=== PATIENT | female | born 2000 | race Caucasian/White ===

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

== ENCOUNTER 2021-03-10 09:17 | Emergency (ER) | payer OTHER ==
[2021-03-10 09:48] VITALS: BP 113/52; PULSE 74; TEMP 98; BMI 27.4
[2021-03-10 11:19] LABS: EPI CELLS 10 /uL (0-25.1); HCG,QUALITATIVE URINE Negative; HYALINE CASTS 7 /uL (0-3.1); PH,URINE 5.5 (5.0-8.0); URINE APPEARANCE CLEAR; URINE BACTERIA 348 /uL (0-1359); URINE BILIRUBIN NEGATIVE (NEGATIVE); URINE COLOR DK YELLOW; URINE GLUCOSE (UA) NEGATIVE (NEGATIVE); URINE KETONE TRACE (NEGATIVE); URINE LEUK ESTERASE 2+ (NEGATIVE); URINE NITRITE NEGATIVE (NEGATIVE); URINE PROTEIN NEGATIVE (NEGATIVE); URINE RBC 11 /uL (0-23.9); URINE WBC 197 /uL (0-25.8)
== END 2021-03-10 13:35 | disposition home or self-care (01) ==
LOC: JER 09:17
DX: N64.4 Mastodynia (principal); N30.00 Acute cystitis without hematuria
CPT/HCPCS: 36415; 76642-TC-LT; 81003; 84703; 87086; 87186; 87491; 87591; 99284-25

== ENCOUNTER 2021-03-19 10:17 | Emergency (ER) | payer OTHER ==
[2021-03-19 10:24] VITALS: BP 105/48; PULSE 65; TEMP 98.4; BMI 29.2
[2021-03-19] MEDS ORDERED: IBUPROFEN 400 MG TABLET (FP) PO ONE ×2 (11:21→11:41)
== END 2021-03-19 12:01 | disposition home or self-care (01) ==
LOC: JERFT 10:17
PROC: 0H9XXZZ Drainage of Left Nipple, External Approach (ICD-10-PCS; principal; 2021-03-19)
DX: N61.1 Abscess of the breast and nipple (principal)
CPT/HCPCS: 99283-25

== ENCOUNTER 2021-03-21 13:23 | Emergency (ER) | payer OTHER ==
[2021-03-21 13:39] VITALS: BP 120/70; PULSE 71; TEMP 97.4; BMI 34.2
== END 2021-03-21 14:32 | disposition home or self-care (01) ==
LOC: JERFT 13:23
DX: Z48.00 Encounter for change or removal of nonsurgical wound dressing (principal)
CPT/HCPCS: 99281-25

== ENCOUNTER 2021-04-02 12:51 | Emergency (ER) | payer OTHER ==
[2021-04-02 12:56] VITALS: BP 104/68; PULSE 74; TEMP 98.2; BMI 26.2
[2021-04-02 14:21] LABS: BASO % 0.4 % (0-2.0); EOS % 1.2 % (0-4.5); HEMATOCRIT 33.9 % (32.4-45.2); HEMOGLOBIN 11.8 GM/dL (10.7-15.3); MCH 31.4 pg (25.7-33.7); MCHC 34.7 g/dl (32.0-36.0); MEAN CELL VOLUME 90.5 fl (80-96); MEAN PLT VOLUME 8.6 fl (7.5-11.1); MONO % 8.9 % (3.8-10.2); NEUT % 63.5 % (42.8-82.8); PLATELET COUNT 237 10^3/uL (134-434); RBC 3.74 M/mm3 (3.60-5.2); RDW 12.3 % (11.6-15.6); WHITE BLOOD COUNT 4.9 K/mm3 (4.0-10.0)
[2021-04-02 14:32] LABS: EPI CELLS 27 /uL (0-25.1); HYALINE CASTS 1 /uL (0-3.1); PH,URINE 5.5 (5.0-8.0); URINE APPEARANCE CLEAR; URINE BACTERIA 255 /uL (0-1359); URINE BILIRUBIN NEGATIVE (NEGATIVE); URINE COLOR YELLOW; URINE GLUCOSE (UA) NEGATIVE (NEGATIVE); URINE KETONE NEGATIVE (NEGATIVE); URINE LEUK ESTERASE 2+ (NEGATIVE); URINE NITRITE NEGATIVE (NEGATIVE); URINE PROTEIN NEGATIVE (NEGATIVE); URINE RBC 15 /uL (0-23.9); URINE WBC 38 /uL (0-25.8)
[2021-04-02] MEDS ORDERED: ACETAMINOPHEN 1000 MG/100 ML VIAL (NON FORMULARY) IVPB ONE (14:45)
[2021-04-02 14:46] LABS: ALBUMIN 3.9 g/dl (3.4-5.0); BLOOD UREA NITROGEN 7.9 mg/dL (7-18); CALCIUM 9.1 mg/dL (8.5-10.1)
[2021-04-02 14:49] LABS: CREATININE 0.5 mg/dL (0.55-1.3)
[2021-04-02 14:50] LABS: BILIRUBIN,TOTAL 2.1 mg/dL (0.2-1)
[2021-04-02] MEDS ORDERED: ACETAMINOPHEN INJECTION 100 ML IVPB ONE (14:50)
[2021-04-02 14:51] LABS: TOT PROT 7.2 g/dl (6.4-8.2)
== END 2021-04-02 17:15 | disposition home or self-care (01) ==
LOC: JER 12:51
PROC: 3E0333Z Introduction of Anti-inflammatory into Peripheral Vein, Percutaneous Approach (ICD-10-PCS; principal; 2021-04-02)
DX: O26.891 Other specified pregnancy related conditions, first trimester (principal); R20.8 Other disturbances of skin sensation; R10.9 Unspecified abdominal pain; Z3A.01 Less than 8 weeks gestation of pregnancy
CPT/HCPCS: 36415; 76801-TC; 80053; 81003; 83690; 84702; 85025; 86850; 86900; 86901; 87086; 99284-25; J0131

== ENCOUNTER 2021-06-27 03:17 | Emergency (ER) | payer OTHER ==
[2021-06-27 04:08] VITALS: BMI 26.2
[2021-06-27] MEDS ORDERED: SODIUM CHLORIDE 0.9% 500 ML INFUS.BAG IV ONE ×3 (04:10→11:05)
[2021-06-27 04:35] LABS: BASO % 0.5 % (0-2.0); EOS % 1.5 % (0-4.5); HEMATOCRIT 28.9 % (32.4-45.2); HEMOGLOBIN 9.9 GM/dL (10.7-15.3); LYMPH % 26.4 % (8-40); MCH 31.6 pg (25.7-33.7); MCHC 34.4 g/dl (32.0-36.0); MEAN CELL VOLUME 91.8 fl (80-96); MEAN PLT VOLUME 8.7 fl (7.5-11.1); MONO % 6.2 % (3.8-10.2); NEUT % 65.4 % (42.8-82.8); PLATELET COUNT 205 10^3/uL (134-434); RBC 3.15 M/mm3 (3.60-5.2); RDW 13.8 % (11.6-15.6); WHITE BLOOD COUNT 5.4 K/mm3 (4.0-10.0)
[2021-06-27 04:43] LABS: PROTHROMBIN TIME (PATIENT) 11.7 SEC (9.7-13.0)
[2021-06-27 04:45] LABS: ACTIVATED PTT 26.3 SECONDS (25.2-36.5)
[2021-06-27 04:55] LABS: ALBUMIN 2.9 g/dl (3.4-5.0); CALCIUM 8.5 mg/dL (8.5-10.1)
[2021-06-27 04:57] LABS: CREATININE 0.5 mg/dL (0.55-1.3)
[2021-06-27 04:59] LABS: BILIRUBIN,TOTAL 0.6 mg/dL (0.2-1); TOT PROT 6.2 g/dl (6.4-8.2)
[2021-06-27 05:51] LABS: PH,URINE 5.5 (5.0-8.0); URINE APPEARANCE CLEAR; URINE BILIRUBIN NEGATIVE (NEGATIVE); URINE COLOR YELLOW; URINE GLUCOSE (UA) NEGATIVE (NEGATIVE); URINE KETONE NEGATIVE (NEGATIVE); URINE LEUK ESTERASE NEGATIVE (NEGATIVE); URINE NITRITE NEGATIVE (NEGATIVE); URINE PROTEIN NEGATIVE (NEGATIVE)
[2021-06-27 08:21] VITALS: TEMP 97.7
[2021-06-27 09:34] LABS: BASO % 0.5 % (0-2.0); EOS % 1.2 % (0-4.5); HEMATOCRIT 25.3 % (32.4-45.2); HEMOGLOBIN 8.7 GM/dL (10.7-15.3); LYMPH % 24.5 % (8-40); MCH 31.9 pg (25.7-33.7); MCHC 34.5 g/dl (32.0-36.0); MEAN CELL VOLUME 92.4 fl (80-96); MEAN PLT VOLUME 9.3 fl (7.5-11.1); NEUT % 67.8 % (42.8-82.8); PLATELET COUNT 171 10^3/uL (134-434); RBC 2.74 M/mm3 (3.60-5.2); RDW 13.5 % (11.6-15.6); WHITE BLOOD COUNT 5.8 K/mm3 (4.0-10.0)
[2021-06-27 11:17] VITALS: BP 95/54; PULSE 81
== END 2021-06-27 13:17 | disposition home or self-care (01) ==
LOC: JER 03:17
DX: O20.9 Hemorrhage in early pregnancy, unspecified (principal); Z3A.16 16 weeks gestation of pregnancy
CPT/HCPCS: 36415; 76815-TC; 80053; 81003; 84702; 85025; 85610; 85730; 86850; 86900; 86901; 99284-25; C9803; U0003; U0005

== ENCOUNTER 2021-09-12 12:13 | Emergency (ER) | payer OTHER ==
[2021-09-12 12:34] VITALS: BP 117/50; PULSE 81; TEMP 97.8; BMI 31.3
[2021-09-12] MEDS ORDERED: LORATADINE 10 MG TABLET PO ONE (13:01)
[2021-09-12] MEDS ORDERED: LORATADINE 10 MG TABLET ONE (13:03)
[2021-09-12 14:07] LABS: ALBUMIN 2.7 g/dl (3.4-5.0)
[2021-09-12 14:10] LABS: CREATININE 0.4 mg/dL (0.55-1.3)
[2021-09-12 14:11] LABS: TOT PROT 6.1 g/dl (6.4-8.2)
[2021-09-12 14:12] LABS: BILIRUBIN,TOTAL 1.6 mg/dL (0.2-1)
[2021-09-12 14:22] LABS: BASO % 0.4 % (0-2.0); EOS % 0.8 % (0-4.5); HEMATOCRIT 30.1 % (32.4-45.2); HEMOGLOBIN 10.8 GM/dL (10.7-15.3); LYMPH % 19.2 % (8-40); MCH 33.8 pg (25.7-33.7); MONO % 7.9 % (3.8-10.2); NEUT % 71.7 % (42.8-82.8); PLATELET COUNT 223 10^3/uL (134-434); RDW 13.1 % (11.6-15.6); WHITE BLOOD COUNT 6.5 K/mm3 (4.0-10.0)
== END 2021-09-12 15:52 | disposition home or self-care (01) ==
LOC: JERFT 12:13
DX: O26.613 Liver and biliary tract disorders in pregnancy, third trimester (principal); Z3A.28 28 weeks gestation of pregnancy
CPT/HCPCS: 36415; 80053; 82542; 85025; 99283-25

== ENCOUNTER 2021-10-26 08:39 | Inpatient (IN) | payer OTHER ==
[~2021-10-26 08:39] MED LIST: DEXTROSE 5%-LACTATED RINGERS 1,000 ML IV SCH
[2021-10-26] MEDS ORDERED: BETAMET ACET/BETAMET NA PH 30 MG/5 ML VIAL ONE (08:57)
[2021-10-26] MEDS ORDERED: TERBUTALINE SULFATE 1 MG/1 ML VIAL SQ ONE ×2 (08:57→09:03)
[2021-10-26] MEDS ORDERED: AMPICILLIN SODIUM 2 GM VIAL ONE (08:57)
[2021-10-26] MEDS ORDERED: DEXTROSE 5%-LACTATED RINGERS 1,000 ML IV SCH (09:00)
[2021-10-26] MEDS ORDERED: BETAMET ACET/BETAMET NA PH 30 MG/5 ML VIAL IM ONE (09:04)
[2021-10-26 09:34] LABS: BASO % 0.4 % (0-2.0); EOS % 0.3 % (0-4.5); HEMATOCRIT 33.1 % (32.4-45.2); HEMOGLOBIN 11.8 GM/dL (10.7-15.3); LYMPH % 19.7 % (8-40); MCH 33.4 pg (25.7-33.7); MCHC 35.6 g/dl (32.0-36.0); MEAN CELL VOLUME 93.8 fl (80-96); MEAN PLT VOLUME 9.1 fl (7.5-11.1); MONO % 4.1 % (3.8-10.2); NEUT % 75.5 % (42.8-82.8); PLATELET COUNT 308 10^3/uL (134-434); RBC 3.53 M/mm3 (3.60-5.2); RDW 12.7 % (11.6-15.6); WHITE BLOOD COUNT 8.1 K/mm3 (4.0-10.0)
[2021-10-26 09:53] LABS: INR 0.89 (0.83-1.09); PROTHROMBIN TIME (PATIENT) 10.2 SEC (9.7-13.0)
[2021-10-26 09:54] LABS: CALCIUM 8.9 mg/dL (8.5-10.1)
[2021-10-26 09:55] VITALS: BMI 30.2
[2021-10-26 09:55] LABS: BLOOD UREA NITROGEN 5.5 mg/dL (7-18)
[2021-10-26 09:56] LABS: ACTIVATED PTT 30.2 SECONDS (25.2-36.5)
[2021-10-26] MEDS ORDERED: AMPICILLIN - 2 GM in SODIUM CHLORIDE 100 ML IVPB ONE (09:57)
[2021-10-26 09:58] LABS: CREATININE 0.5 mg/dL (0.55-1.3)
[2021-10-26] MEDS ORDERED: FENTANYL/BUPIVACAINE/NS/PF - PCEA - 50 ML DISP.SYRIN EP ONE (10:00)
[2021-10-26] MEDS ORDERED: ELECTROLYTE-148 SOLN 1,000 ML IV SCH (10:00)
[2021-10-26] MEDS ORDERED: BUPIVACAINE HCL/PF 0.25% (2.5MG/ML) 10 ML VIAL ONE (10:14)
[2021-10-26] MEDS ORDERED: NALOXONE HCL 0.4 MG/ML VIAL IVPUSH PRN (10:16)
[2021-10-26] MEDS ORDERED: FENTANYL/BUPIVACAINE/NS/PF - PCEA - 50 ML DISP.SYRIN EP SCH (10:30)
[2021-10-26 11:23] LABS: PH,URINE 7.5 (5.0-8.0); URINE APPEARANCE CLEAR; URINE BILIRUBIN 1+ (NEGATIVE); URINE COLOR DK YELLOW; URINE GLUCOSE (UA) NEGATIVE (NEGATIVE); URINE KETONE TRACE (NEGATIVE); URINE LEUK ESTERASE NEGATIVE (NEGATIVE); URINE NITRITE NEGATIVE (NEGATIVE); URINE PROTEIN NEGATIVE (NEGATIVE)
[2021-10-26] MEDS ORDERED: AMPICILLIN - 1 GM in SODIUM CHLORIDE 100 ML IVPB SCH (13:05)
[2021-10-26] MEDS ORDERED: AMPICILLIN SODIUM 1 GM VIAL ONE (13:37)
[2021-10-26] MEDS ORDERED: OXYTOCIN 20 UNITS in 0.9% NS 20 UNIT/1,000 ML INFUS.BAG IV ONE (14:02)
[2021-10-26] MEDS ORDERED: BENZOCAINE 28 GM HEMORRHOIDAL OINTMENT TP PRN (15:05)
[2021-10-26] MEDS ORDERED: METHYLERGONOVINE MALEATE 0.2 MG/1 ML AMP IM PRN (15:05)
[2021-10-26] MEDS ORDERED: WITCH HAZEL 50% (TUCKS) 40 PAD/JAR PAD TP PRN (15:05)
[2021-10-26] MEDS ORDERED: ACETAMINOPHEN 325 MG TABLET (FP) PO PRN (15:05)
[2021-10-26] MEDS ORDERED: BENZOCAINE 20% 57 GM BOTTLE TP PRN (15:05)
[2021-10-26] MEDS ORDERED: BISACODYL 10 MG SUPP.RECT RC PRN (15:05)
[2021-10-26] MEDS ORDERED: oxyCODONE HCL 5 MG TABLET PO PRN (15:05)
[2021-10-26] MEDS ORDERED: OXYTOCIN 20 UNITS in 0.9% NS 20 UNIT/1,000 ML INFUS.BAG IV SCH (15:15)
[2021-10-26 15:33] LABS: CORD BASE EXCESS -10.9 mmol/L (0-2); CORD PCO2 45.4 mmHg (30-78); CORD pH 7.192 (7.14-7.44)
[2021-10-26 15:35] LABS: CORD BASE EXCESS -3.1 mmol/L (0-2); CORD HCO3 23.4 mmHg (20-29); CORD PCO2 46.7 mmHg (30-78); CORD pH 7.317 (7.14-7.44)
[2021-10-26] MEDS: IBUPROFEN 600 MG TABLET (FP) PO PRN (22:56)
[2021-10-27 08:24] LABS: BASO % 0.3 % (0-2.0); EOS % 0.3 % (0-4.5); HEMOGLOBIN 10.3 GM/dL (10.7-15.3); LYMPH % 17.5 % (8-40); MCH 32.6 pg (25.7-33.7); MCHC 34.5 g/dl (32.0-36.0); MEAN CELL VOLUME 94.5 fl (80-96); MEAN PLT VOLUME 8.8 fl (7.5-11.1); MONO % 7.1 % (3.8-10.2); NEUT % 74.8 % (42.8-82.8); PLATELET COUNT 302 10^3/uL (134-434); RBC 3.17 M/mm3 (3.60-5.2); RDW 12.6 % (11.6-15.6)
[2021-10-27] MEDS: IBUPROFEN 600 MG TABLET (FP) PO PRN ×2 (08:33→14:13)
[2021-10-27] MEDS ORDERED: SENNOSIDES/DOCUSATE COMBO (SENNA PLUS) TABLET (UD) PO PRN (22:00)
[2021-10-28 08:43] VITALS: BP 98/60; PULSE 79; TEMP 98.5
== END 2021-10-28 11:45 | disposition home or self-care (01) | DRG 560 ==
LOC: JDEL 08:39 → JLDR 08:47 → J3W 17:04
PROVIDERS: ADMIT Obstetrics & Gynecology; ATTEND Obstetrics & Gynecology
PROC: 10E0XZZ Delivery of Products of Conception, External Approach (ICD-10-PCS; principal; 2021-10-26)
PROC: 10907ZC Drainage of Amniotic Fluid, Therapeutic from Products of Conception, Via Natural or Artificial Opening (ICD-10-PCS; 2021-10-26)
DX: O26.62 Liver and biliary tract disorders in childbirth (principal); K83.1 Obstruction of bile duct; O60.14X0 Preterm labor third trimester with preterm delivery third trimester, not applicable or unspecified; O70.0 First degree perineal laceration during delivery; Z3A.35 35 weeks gestation of pregnancy; Z37.0 Single live birth
CPT/HCPCS: 36415; 36600; 59409; 80048; 81003; 82803; 85025; 85362; 85384; 85610; 85730; 86780; 86850; 86900; 86901; 87086; 96372; C9803-CS; U0003; U0005

== ENCOUNTER 2021-11-25 18:07 | Emergency (ER) | payer OTHER ==
[2021-11-25 18:42] VITALS: BP 100/67; PULSE 67; TEMP 98.4; BMI 27.6
[2021-11-26] MEDS ORDERED: ACETAMINOPHEN 500 MG TABLET (FP) ONE (13:07)
[2021-11-26] MEDS ORDERED: ONDANSETRON 4 MG TABLET PO ONE (13:08)
== END 2021-11-25 20:05 | disposition left against medical advice (07) ==
LOC: JERFT 18:07 → JER 18:07 → JERFT 20:05
DX: K59.00 Constipation, unspecified (principal)
CPT/HCPCS: 99281-25

== ENCOUNTER 2021-11-26 10:11 | Emergency (ER) | payer OTHER ==
[2021-11-26 10:20] VITALS: BP 97/62; PULSE 60; TEMP 98; BMI 28.3
[2021-11-26] MEDS ORDERED: ACETAMINOPHEN 500 MG TABLET (FP) PO ONE (13:03)
[2021-11-26] MEDS ORDERED: ONDANSETRON 4 MG TABLET PO ONE (13:08)
[2021-11-26 14:23] LABS: EPI CELLS 2 /uL (0-25.1); HCG,QUALITATIVE URINE Negative; HYALINE CASTS 4 /uL (0-3.1); PH,URINE 5.5 (5.0-8.0); URINE APPEARANCE CLEAR; URINE BACTERIA >9,000 /uL (0-1359); URINE BILIRUBIN NEGATIVE (NEGATIVE); URINE COLOR YELLOW; URINE GLUCOSE (UA) NEGATIVE (NEGATIVE); URINE KETONE NEGATIVE (NEGATIVE); URINE LEUK ESTERASE 2+ (NEGATIVE); URINE NITRITE POSITIVE (NEGATIVE); URINE PROTEIN NEGATIVE (NEGATIVE); URINE RBC 9 /uL (0-23.9); URINE UROBILINOGEN 0.2 mg/dL (0.2-1.0); URINE WBC 387 /uL (0-25.8)
== END 2021-11-26 16:02 | disposition home or self-care (01) ==
LOC: JER 10:11 → JERFT 10:11
DX: N39.0 Urinary tract infection, site not specified (principal); K59.00 Constipation, unspecified
CPT/HCPCS: 36415; 74021-TC-FY; 81003; 84703; 87086; 87186; 87491; 87591; 99284-25

== ENCOUNTER 2023-01-04 13:20 | Emergency (ER) | payer OTHER ==
[2023-01-04 13:28] VITALS: RESP 18; BMI 26.6
[2023-01-04 14:42] VITALS: BP 102/85; PULSE 66; TEMP 98.1
[2023-01-04 18:16] LABS: URINE APPEARANCE CLEAR; URINE BILIRUBIN NEGATIVE (NEGATIVE); URINE COLOR YELLOW; URINE GLUCOSE (UA) NEGATIVE (NEGATIVE); URINE KETONE NEGATIVE (NEGATIVE); URINE LEUK ESTERASE NEGATIVE (NEGATIVE); URINE NITRITE NEGATIVE (NEGATIVE); URINE PROTEIN NEGATIVE (NEGATIVE); URINE UROBILINOGEN 0.2 mg/dL (0.2-1.0)
== END 2023-01-04 18:40 | disposition home or self-care (01) ==
LOC: JER 13:20
DX: O20.9 Hemorrhage in early pregnancy, unspecified (principal); O26.892 Other specified pregnancy related conditions, second trimester; R05.9 Cough, unspecified; R50.9 Fever, unspecified; R30.0 Dysuria; B34.9 Viral infection, unspecified; Z3A.21 21 weeks gestation of pregnancy
CPT/HCPCS: 81003; 87086; 99283-25

== ENCOUNTER 2023-02-16 17:20 | Emergency (ER) | payer OTHER ==
[2023-02-16 17:28] VITALS: BMI 29.2
[2023-02-16 20:10] LABS: BASO % 0.5 % (0-2.0); EOS % 0.9 % (0-4.5); HEMATOCRIT 33.7 % (32.4-45.2); HEMOGLOBIN 11.9 GM/dL (10.7-15.3); LYMPH % 22.3 % (8-40); MCH 33.1 pg (25.7-33.7); MCHC 35.4 g/dl (32.0-36.0); MEAN CELL VOLUME 93.5 fl (80-96); MEAN PLT VOLUME 9.2 fl (7.5-11.1); MONO % 6.2 % (3.8-10.2); NEUT % 70.1 % (42.8-82.8); PLATELET COUNT 213 10^3/uL (134-434); RBC 3.61 M/mm3 (3.60-5.2); RDW 13.4 % (11.6-15.6); WHITE BLOOD COUNT 7.2 K/mm3 (4.0-10.0)
[2023-02-16 20:12] LABS: EPI CELLS 26 /uL (0-25.1); HYALINE CASTS 0 /uL (0-3.1); PH,URINE 6.5 (5.0-8.0); URINE APPEARANCE CLEAR; URINE BACTERIA 102 /uL (0-1359); URINE BILIRUBIN NEGATIVE (NEGATIVE); URINE COLOR DK YELLOW; URINE GLUCOSE (UA) NEGATIVE (NEGATIVE); URINE KETONE TRACE (NEGATIVE); URINE LEUK ESTERASE TRACE (NEGATIVE); URINE NITRITE NEGATIVE (NEGATIVE); URINE PROTEIN TRACE (NEGATIVE); URINE RBC 21 /uL (0-23.9); URINE WBC 12 /uL (0-25.8)
[2023-02-16 20:37] LABS: POTASSIUM 3.9 mmol/L (3.5-5.1)
[2023-02-16 20:39] LABS: CALCIUM 8.2 mg/dL (8.5-10.1)
[2023-02-16 20:40] LABS: ALBUMIN 2.9 g/dl (3.4-5.0); BLOOD UREA NITROGEN 9.5 mg/dL (7-18)
[2023-02-16 20:43] LABS: CREATININE 0.6 mg/dL (0.55-1.3)
[2023-02-16 20:44] LABS: BILIRUBIN,TOTAL 0.9 mg/dL (0.2-1); TOT PROT 6.5 g/dl (6.4-8.2)
[2023-02-16 20:47] LABS: N-TERMINAL BNP 106.3 pg/ml (5-125)
[2023-02-17 03:06] VITALS: RESP 20; TEMP 98.1
[2023-02-17 03:35] VITALS: BP 99/55; PULSE 59
== END 2023-02-17 02:10 | disposition home or self-care (01) ==
LOC: JER 17:20
DX: O26.893 Other specified pregnancy related conditions, third trimester (principal); M54.50 Low back pain, unspecified; M79.605 Pain in left leg; R20.2 Paresthesia of skin; R22.41 Localized swelling, mass and lump, right lower limb; O21.9 Vomiting of pregnancy, unspecified; Z3A.29 29 weeks gestation of pregnancy
CPT/HCPCS: 36415; 80053; 81003; 83880; 84702; 85025; 87086; 93005; 93010; 93970-TC; 99285-25

== ENCOUNTER 2023-04-19 07:00 | Inpatient (IN) | payer OTHER ==
[2023-04-19 09:19] VITALS: BMI 29.0
[2023-04-19 09:23] LABS: INR 0.91 (0.83-1.09); PROTHROMBIN TIME (PATIENT) 10.6 SEC (9.7-13.0)
[2023-04-19 09:26] LABS: ACTIVATED PTT 25.1 SECONDS (25.2-36.5)
[2023-04-19 09:33] LABS: POTASSIUM 3.9 mmol/L (3.5-5.1)
[2023-04-19] MEDS ORDERED: OXYTOCIN 30 UNITS in 0.9% NS 30 UNIT/500 ML INFUS.BAG IVPB ONE (09:34)
[2023-04-19 09:35] LABS: BLOOD UREA NITROGEN 9.8 mg/dL (7-18); CALCIUM 8.1 mg/dL (8.5-10.1)
[2023-04-19 09:39] LABS: CREATININE 0.5 mg/dL (0.55-1.3)
[2023-04-19] MEDS ORDERED: OXYTOCIN 30 UNITS in 0.9% NS 30 UNIT/500 ML INFUS.BAG IVPB SCH (09:45)
[2023-04-19] MEDS ORDERED: ELECTROLYTE-148 SOLN 1,000 ML IV SCH (09:45)
[2023-04-19 10:09] LABS: BASO % 0.8 % (0-2.0); EOS % 0.6 % (0-4.5); HEMATOCRIT 34.8 % (32.4-45.2); LYMPH % 24.3 % (8-40); MCHC 34.4 g/dl (32.0-36.0); MEAN CELL VOLUME 95.7 fl (80-96); MEAN PLT VOLUME 10.1 fl (7.5-11.1); MONO % 5.4 % (3.8-10.2); NEUT % 68.9 % (42.8-82.8); PLATELET COUNT 184 10^3/uL (134-434); RBC 3.64 M/mm3 (3.60-5.2); RDW 12.8 % (11.6-15.6); WHITE BLOOD COUNT 6.1 K/mm3 (4.0-10.0)
[2023-04-19] MEDS ORDERED: FENTANYL/BUPIVACAINE/NS/PF - PCEA - 50 ML DISP.SYRIN EP ONE (12:08)
[2023-04-19] MEDS ORDERED: NALOXONE HCL 0.4 MG/ML VIAL IVPUSH PRN (12:28)
[2023-04-19] MEDS ORDERED: BUPIVACAINE HCL/PF 0.25% (2.5MG/ML) 10 ML VIAL ONE (12:30)
[2023-04-19] MEDS ORDERED: FENTANYL/BUPIVACAINE/NS/PF - PCEA - 50 ML DISP.SYRIN EP SCH (12:30)
[2023-04-19] MEDS ORDERED: LIDOCAINE HCL/EPINEPHRINE/PF 10 ML VIAL ONE (12:30)
[2023-04-19] MEDS ORDERED: FENTANYL CITRATE/PF 50 MCG/ML VIAL ONE (12:30)
[2023-04-19] MEDS ORDERED: OXYTOCIN 20 UNITS in 0.9% NS 20 UNIT/1,000 ML INFUS.BAG IV ONE (13:04)
[2023-04-19] MEDS ORDERED: WITCH HAZEL 50% (TUCKS) 40 PAD/JAR PAD TP PRN (13:45)
[2023-04-19] MEDS ORDERED: ACETAMINOPHEN 325 MG TABLET (FP) PO PRN (13:45)
[2023-04-19] MEDS ORDERED: BISACODYL 10 MG SUPP.RECT RC PRN (13:45)
[2023-04-19] MEDS ORDERED: BENZOCAINE 28 GM HEMORRHOIDAL OINTMENT TP PRN (13:45)
[2023-04-19] MEDS ORDERED: OXYTOCIN 20 UNITS in 0.9% NS 20 UNIT/1,000 ML INFUS.BAG IV SCH (13:45)
[2023-04-19] MEDS: IBUPROFEN 600 MG TABLET (FP) PO PRN (20:30)
[2023-04-20 08:29] LABS: BASO % 0.7 % (0-2.0); EOS % 0.7 % (0-4.5); HEMATOCRIT 33.4 % (32.4-45.2); HEMOGLOBIN 11.3 GM/dL (10.7-15.3); LYMPH % 21.4 % (8-40); MCH 32.3 pg (25.7-33.7); MCHC 33.9 g/dl (32.0-36.0); MEAN CELL VOLUME 95.2 fl (80-96); MEAN PLT VOLUME 10.1 fl (7.5-11.1); MONO % 5.7 % (3.8-10.2); NEUT % 71.5 % (42.8-82.8); PLATELET COUNT 176 10^3/uL (134-434); RDW 12.6 % (11.6-15.6); WHITE BLOOD COUNT 7.1 K/mm3 (4.0-10.0)
[2023-04-20] MEDS: IBUPROFEN 600 MG TABLET (FP) PO PRN (19:45)
[2023-04-20] MEDS ORDERED: guaiFENesin/D-METHORPHAN HB 10 ML UNIT-DOSE CUPS PO PRN (20:03)
[2023-04-20] MEDS ORDERED: SENNOSIDES/DOCUSATE COMBO (SENNA PLUS) TABLET (UD) PO PRN (22:00)
[2023-04-21 12:18] VITALS: BP 95/58; PULSE 87; RESP 18; TEMP 98
== END 2023-04-21 14:30 | disposition home or self-care (01) | DRG 560 ==
LOC: JLDR 07:00 → J3W 15:20
PROVIDERS: ADMIT Student in an Organized Health Care Education/Training Program; ATTEND Student in an Organized Health Care Education/Training Program
PROC: 10E0XZZ Delivery of Products of Conception, External Approach (ICD-10-PCS; principal; 2023-04-19)
DX: O26.643 Intrahepatic cholestasis of pregnancy, third trimester (principal); K83.1 Obstruction of bile duct; Z3A.36 36 weeks gestation of pregnancy; Z37.0 Single live birth
CPT/HCPCS: 36415; 80048; 85025; 85610; 85730; 86780; 86850; 86900; 86901

== ENCOUNTER 2023-07-09 08:13 | Emergency (ER) | payer OTHER ==
[2023-07-09 08:50] VITALS: RESP 20; BMI 25.7
[2023-07-09] MEDS ORDERED: IBUPROFEN 400 MG TABLET (FP) PO ONE ×2 (08:54→08:56)
[2023-07-09 10:10] LABS: THROAT:GRP A STREP NOT DETECTED (NOTDETECTED)
[2023-07-09 10:26] VITALS: BP 102/56; PULSE 64; TEMP 98.5
== END 2023-07-09 11:22 | disposition home or self-care (01) ==
LOC: JERFT 08:13
DX: R05.9 Cough, unspecified (principal); R50.9 Fever, unspecified; R09.81 Nasal congestion; J06.9 Acute upper respiratory infection, unspecified; B97.4 Respiratory syncytial virus as the cause of diseases classified elsewhere; Z20.822 Contact with and (suspected) exposure to COVID-19
CPT/HCPCS: 0241U-QW; 87651; 99283-25